=== PATIENT | female | born 1990 | race Caucasian/White ===

== ENCOUNTER 2021-08-16 17:27 | Emergency (ER) | payer OTHER ==
--- NOTE | 2021-08-16 19:09 | ED ---
General Adult HPI - General Chief complaint: Eye Problems Stated complaint: Lt Eye Pain Time Seen by Provider: 08/16/21 18:55 Source: patient, RN notes reviewed, old records reviewed Mode of arrival: ambulatory Limitations: no limitations - History of Present Illness Initial comments: 31-year-old female patient presents to the emergency room with complaints of her contact lens been in her left eye for more than 30 days. Patient states that she thought it came out and put another one overtop but has been having difficulty seeing out of that eye and now has a headache, left side. States the pain is 5 out of 10. She did go to urgent care prior to coming here and they told her that the contact is fused to her eye. -: days(s) (30) Severity scale (1-10): 5 Consistency: constant Improves with: none Worsens with: none Associated Symptoms: headaches Treatments Prior to Arrival: none - Related Data Previous Rx's Medication Instructions Recorded Polymyxin B-Trimeth Sulf Ophth 1 drops BOTH EYES Q4H 7 Days #10 ml 08/16/21 [Polytrim Opthalmic] Allergies Allergy/AdvReac Type Severity Reaction Status Date / Time No Known Allergies Allergy Verified 08/16/21 18:07 Review of Systems ROS Statement: Those systems with pertinent positive or pertinent negative responses have been documented in the HPI. ROS Other: All systems not noted in ROS Statement are negative. Past Medical History Past Medical History: No Reported History Past Surgical History: Appendectomy Past Psychological History: Anxiety, Depression, PTSD Smoking Status: Vaper Past Alcohol Use History: Occasional Past Drug Use History: None Reported General Exam Limitations: no limitations General appearance: alert, in no apparent distress Head exam: Present: atraumatic, normocephalic, normal inspection Eye exam: Present: PERRL, EOMI, conjunctival injection. Absent: scleral icterus, nystagmus, periorbital swelling, periorbital tenderness Pupils: Present: normal accommodation ENT exam: Present: normal exam, normal oropharynx, mucous membranes moist Neck exam: Present: normal inspection, full ROM. Absent: tenderness, meningismus, lymphadenopathy Cardiovascular Exam: Present: tachycardia Neurological exam: Present: alert, oriented X3, CN II-XII intact Psychiatric exam: Present: normal affect, normal mood, anxious Skin exam: Present: warm, dry, intact, normal color. Absent: rash Course Vital Signs 08/16/21 08/16/21 18:08 20:04 Temperature 98.3 F 98.6 F Pulse Rate 109 H 72 Respiratory 18 20 Rate Blood Pressure 118/83 116/78 O2 Sat by Pulse 97 98 Oximetry Procedures - Forgein Body Removal Eye Site: Left Anesthetic Used: Proparacaine Eye Exam Technique: North Lamp, Fluorescein Foreign Body Suspected: Other (Suspected contact lens) Remaining Debris: No Patient Tolerated: well Additional Comments: Patient suspected a contact lens was lost in her eye there was no evidence of foreign body or corneal abrasion. Medical Decision Making - Medical Decision Making Patient's left eye was examined with fluorescein stain and wood's lamp. There is no evidence of a contact or foreign body. There is no evidence of corneal abrasion. I did perform upper and lower lid inversion with no evidence of foreign body. She denies any visual disturbances. She was given a referral to optometry or ophthalmology for follow-up. She was also prescribed eyedrops prophylactically for conjunctival injection. Disposition Clinical Impression: Irritation of eye Disposition: HOME SELF-CARE Condition: Good Additional Instructions: Follow-up with optometry or ophthalmology within the next week. Use the medication eyedrops as prescribed. Prescriptions: Polymyxin B-Trimeth Sulf Ophth [Polytrim Opthalmic] 1 drops BOTH EYES Q4H 7 Days #10 ml Is patient prescribed a controlled substance at d/c from ED?: No Referrals: None,Stated [Primary Care Provider] - 1-2 days Андрей Krause MD [STAFF PHYSICIAN] - 1-2 days Time of Disposition: 19:45
[2021-08-16] MEDS ORDERED: PROPARACAINE 0.5% OPHTH DROPS 15 ML BTL LEFT EYE STA (19:10)
[2021-08-16] MEDS ORDERED: FLUORESCEIN STRIPS 1 MG STRIP LEFT EYE ONE (19:11)
[2021-08-16 20:08] VITALS: BP 116/78; PULSE 72; RESP 20; TEMP 98.6
== END 2021-08-16 20:04 | disposition home or self-care (01) ==
LOC: EC 17:27
DX: H57.89 Other specified disorders of eye and adnexa (principal); F41.9 Anxiety disorder, unspecified; F32.9 Major depressive disorder, single episode, unspecified; F43.12 Post-traumatic stress disorder, chronic; F17.290 Nicotine dependence, other tobacco product, uncomplicated; Z90.49 Acquired absence of other specified parts of digestive tract
CPT/HCPCS: 99283